=== PATIENT | male | born 1975 | race Caucasian/White ===

== ENCOUNTER 2019-11-29 22:40 | Emergency (ER) | payer OTHER ==
[~2019-11-29] VITALS: Ht 180.3 cm; Wt 97.5 kg
[2019-11-29 22:40] VITALS: BP_SYST 153
--- NOTE | 2019-11-29 22:40 | NUR ---
Patient to ER bed 08 to gown for evaluation. Side rails up. Report given to HERIBERTO Edge
--- NOTE | 2019-11-29 22:54 | NUR ---
PT A&O X4 C/O OF RIGHT KNEE PAIN AND SWELLING THAT STARTED SATURDAY AT 1PM. 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 PTS RIGHT KNEE APPEARS SWOLLEN, RED, WARM TO THE TOUCH. PT REPORTS HE IS UNABLE TO STRAIGHTEN OR BEND LEG COMPLETELY. PT RATES HIS PAIN AT A 9 OUT OF 10 AND DESCRIBES IT ACHING. PT WENT TO URGENT CARE THIS MORNING AND WAS PRESCRIBED PAIN KILLERS AND MUSCLE RELAXERS. PT REPORTS A FEVER OF 101 AT HOME PRIOR TO ARRIVING TO ER. PT WAS TESTED FOR COVID LAST SATURDAY AND RESULTS CAME BACK NEGATIVE ON Saturday11/23/2019. PT DENIES PMH. NO OTHER MEDICAL COMPLAINTS AT THIS TIME.
--- NOTE | 2019-11-29 22:54 | NUR ---
ER at bedside examining patient.
[2019-11-29] MEDS ORDERED: LIDOCAINE 1% 10 MG/ML, 20 ML MDV SUBCUT ONE (23:15)
--- NOTE | 2019-11-29 23:30 | NUR ---
DR. EASON ADMINISTERED LIDOCAINE.
--- NOTE | 2019-11-29 23:30 | NUR ---
DR. EASON AT BEDSIDE PERFORMING JOINT ASPIRATION ON RIGHT KNEE.
--- NOTE | 2019-11-29 23:40 | NUR ---
FLUID FROM RIGHT KNEE SENT TO LAB FOR TESTS.
--- NOTE | 2019-11-30 00:53 | NUR ---
PT RESTING COMFORTABLY IN BED WITH NO SIGNS OF ACUTE DISTRESS.
--- NOTE | 2019-11-30 01:28 | NUR ---
PT GIVEN A GLASS OF WATER. PT RESTING COMFORTABLY IN BED.
[2019-11-30] MEDS ORDERED: LIDOCAINE 1% 10 MG/ML, 20 ML MDV INJ ONE (01:45)
[2019-11-30 02:46] LABS: BF APPEARANCE UNSPUN HAZY (CLEAR); BODY FLUID COLOR YELLOW (LT YELLOW); BODY FLUID SOURCE/ TYPE SYNOVIAL; SOURCE/TYPE ,BODY FLUID SYNOVIAL
[2019-11-30 02:47] LABS: BODY FLUID TOTAL VOLUME 36 mL
[2019-11-30 02:53] LABS: WBC, BODY FLUID 18688 /uL
--- NOTE | 2019-11-30 02:56 | NUR ---
PT SLEEPING IN BED WITH NO SIGNS OF ACUTE DISTRESS.
[2019-11-30 03:02] LABS: RBC, BODY FLUID 677 /uL
--- NOTE | 2019-11-30 03:48 | NUR ---
PT SLEEPING IN BED WITHOUT SIGNS OF ACUTE DISTRESS. EVEN AND UNLABORED BREATHING. PT IS COMFORTABLE WITH PILLOW RESTING BELOW KNEE.
[2019-11-30 04:09] LABS: EOSINOPHIL, BODY FLUID 0 %; LYMPHOCYTES, BODY FLUID 3 %; MONOCYTES,BODY FLUID 1 %; NEUTROPHIL, BODY FLUID 96 %
[2019-11-30 04:25] LABS: BODY FLUID CRYSTALS Uric Acid-Few (None Seen)
[2019-11-30] MEDS ORDERED: cefTRIAXone 1 GM in LIDOCAINE 1%, 20 ML MDV 2.1 ML IM ONE (04:45)
--- NOTE | 2019-11-30 04:52 | NUR ---
PT DEMONSTRATED ABILITY TO AMBULATE WITH CRUTCHES WITH STEADY GAIT.
[2019-11-30 05:10] VITALS: BP_SYST 122
--- NOTE | 2019-11-30 05:10 | NUR ---
Patient given written and verbal discharge instructions and verbalizes understanding. ER MD discussed with patient the results and treatment provided. Patient in stable condition. ID arm band removed. no Rx given. Patient educated on pain management and to follow up with PMD. Pain Scale 7/10. Opportunity for questions provided and answered. Medication side effect fact sheet provided.
[2019-11-30 14:16] LABS: BODY FLUID GLUCOSE 45 mg/dL; BODY FLUID TOTAL PROTEIN 4.3 g/dL
== END 2019-11-30 05:10 | disposition home or self-care (01) ==
LOC: SED 22:40
DX: M25.461 Effusion, right knee (principal); M10.9 Gout, unspecified
CPT/HCPCS: 20610; 36415; 82947; 84157; 87070; 89051 ×2; 89060; 96372; 99283; J0696; J2001 ×2